=== PATIENT | female | born 2000 | race Caucasian/White ===

== ENCOUNTER 2021-01-21 14:01 | Outpatient (REF) | payer OTHER, SELFPAY | END 2021-01-21 14:02 | disposition home or self-care (01) | LOC: HO.LNP 14:01 | PROVIDERS: Visit Provider Physician Assistant Medical | DX: R11.10 Vomiting, unspecified (principal); Z20.822 Contact with and (suspected) exposure to COVID-19 | CPT/HCPCS: U0003; U0005 ==

== ENCOUNTER 2022-01-28 10:52 | Emergency (ER) | payer OTHER, SELFPAY ==
[2022-01-28 11:22] VITALS: BP 144/65; PULSE 124; RESP 20; TEMP 38.3; O2SAT 95; BMI 39.0
--- NOTE | 2022-01-28 11:23 | ED.URI ---
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 No additional vomiting. NO diarrhea, abdominal pain, neck pain/stiffness, rash, diff breathing. <ELINA Levy Last Filed: 01/28/22 13:03> Related Data Home Medications: Previous Rx's Medication Instructions Recorded ondansetron 4 mg disintegrating 4 mg PO Q6H PRN nausea and 01/28/22 tablet vomiting #10 tabs <Zulma Rangel CNP - Last Filed: 01/28/22 11:29> Allergies/Adverse Reactions: Allergies Allergy/AdvReac Type Severity Reaction Status Date / Time No Known Allergies Allergy Verified 01/21/21 12:39 <Zulma Rangel CNP - Last Filed: 01/28/22 11:29> Review of Systems Review of Systems: Yes all other systems are reviewed and are negative <ELINA Levy Last Filed: 01/28/22 13:03> Constitutional: Constitutional: Reports no additional constitutional complaints, Reports body ache(s), Reports chills, Reports fever(s), Reports headache(s) and Denies weakness <ELINA Levy Last Filed: 01/28/22 13:03> Eyes: Eyes: Reports no additional eye complaints and Denies change in vision <Melly Trejo NP - Last Filed: 01/28/22 13:03> ENT: Reports system reviewed and no additional complaints, except as documented, Denies dizziness, Reports headache(s), Reports nasal congestion, Denies nasal discharge and Denies neck pain <Melly Trejo BACTERIOLOGIST MEDICAL - Last Filed: 01/28/22 13:03> Cardiovascular: Cardiovascular: Reports no additional cardiovascular complaints, Denies chest pain, Denies leg edema and Denies dyspnea <Melly Trejo BACTERIOLOGIST MEDICAL - Last Filed: 01/28/22 13:03> Respiratory: Respiratory: Reports no additional respiratory complaints, Reports cough and Denies dyspnea <Melly Trejo NP - Last Filed: 01/28/22 13:03> Gastrointestinal: Gastrointestinal: Reports no additional gastrointestinal complaints, Denies abdominal pain, Denies diarrhea, Reports nausea and Reports vomiting <Melly Trejo NP - Last Filed: 01/28/22 13:03> Genitourinary: Genitourinary: Reports no additional female genitourinary complaints and Denies urinary incontinence <Melly Trejo BACTERIOLOGIST MEDICAL - Last Filed: 01/28/22 13:03> Musculoskeletal: Musculoskeletal: Reports no additional musculoskeletal complaints, Denies back pain, Denies arthralgias, Denies joint swelling, Denies neck pain, Denies numbness and Denies tingling <Melly Trejo NP - Last Filed: 01/28/22 13:03> Integumentary/Breasts: Skin/Breast: Reports system reviewed and no additional complaints, except as docu and Denies rash <Melly Trejo NP - Last Filed: 01/28/22 13:03> Neurologic: Reports system reviewed and no additional complaints, except as documented, Denies Abnormal speech present, Denies dizziness, Reports headache(s), Denies numbness, Denies tingling and Denies weakness <Melly Trejo NP - Last Filed: 01/28/22 13:03> PMFSH Past Medical History Attestation statement: The following information was validated with the patient. <Melly Trejo NP - Last Filed: 01/28/22 13:03> Source: old records reviewed and nursing notes reviewed <Melly Trejo NP - Last Filed: 01/28/22 13:03> Social History Social History: Social History Patient Tobacco Use Status: Never used Tobacco Advance Directives: No Advance Directives Information Provided: Yes <Zulma Rangel CNP - Last Filed: 01/28/22 11:29> Physical Exam Vital Signs: Vital Signs: Last Vital Signs Temp 98.4 F 01/28/22 12:55 Pulse 119 H 01/28/22 12:55 Resp 16 01/28/22 12:55 BP 112/68 01/28/22 12:55 Pulse Ox 95 01/28/22 12:55 O2 Del Method 01/28/22 12:55 BMI result Body Mass Index 39.0 <Zulma Rangel CNP - Last Filed: 01/28/22 11:29> Vital Signs: Last Vital Signs Temp 98.4 F 01/28/22 12:55 Pulse 119 H 01/28/22 12:55 Resp 16 01/28/22 12:55 BP 112/68 01/28/22 12:55 Pulse Ox 95 01/28/22 12:55 O2 Del Method 01/28/22 12:55 BMI result Body Mass Index 39.0 <Melly Trejo NP - Last Filed: 01/28/22 13:03> Const: General: cooperative, healthy appearing, comfortable and no acute distress <Melly Trejo NP - Last Filed: 01/28/22 13:03> Orientation/consciousness: patient oriented x3 <Melly Trejo NP - Last Filed: 01/28/22 13:03> Limitations: no limitations <Melly Trejo NP - Last Filed: 01/28/22 13:03> HEENT: Head: Yes normal to inspection <Melly Trejo NP - Last Filed: 01/28/22 13:03> Ears: hearing grossly normal bilaterally and TM's normal bilaterally <Melly Trejo NP - Last Filed: 01/28/22 13:03> General nose exam: Normal external nose present <Melly Trejo NP - Last Filed: 01/28/22 13:03> Face and sinus: Yes normal facial exam <Melly Trejo NP - Last Filed: 01/28/22 13:03> Mouth: Normal oral and palatal mucosa present <Melly Trejo NP - Last Filed: 01/28/22 13:03> Throat: Yes posterior oropharynx normal, Yes tonsils normal and Yes uvula midline <Melly Trejo BACTERIOLOGIST MEDICAL - Last Filed: 01/28/22 13:03> Eyes: General: appearance normal, both eyes and all related structures <Melly Trejo NP - Last Filed: 01/28/22 13:03> Pupils: Equal, round and reactive pupils present <Melly Trejo NP - Last Filed: 01/28/22 13:03> Neck: Neck: Yes normal visual inspection <Melly Trejo NP - Last Filed: 01/28/22 13:03> Chest: Chest palpation & inspection: normal inspection of the chest <Melly Trejo NP - Last Filed: 01/28/22 13:03> Resp: Other: Mild exp wheezing <Melly Trejo NP - Last Filed: 01/28/22 13:03> Effort & Inspection: normal respiratory effort <Melly Trejo NP - Last Filed: 01/28/22 13:03> Cardio: Rate: regular rate <Melly Trejo NP - Last Filed: 01/28/22 13:03> Rhythm: regular rhythm <Melly Trejo NP - Last Filed: 01/28/22 13:03> Peripheral pulses: Peripheral pulses 2+ throughout <Melly Trejo NP - Last Filed: 01/28/22 13:03> GI: Inspection: Yes normal to inspection <Melly Trejo NP - Last Filed: 01/28/22 13:03> Palpation (GI): Soft to palpation and nontender <Melly Trejo NP - Last Filed: 01/28/22 13:03> Auscultation: normal bowel sounds <Melly Trejo NP - Last Filed: 01/28/22 13:03> Back/Spine/Pelvis: Thoracic/Lumbar Spine: thoracic and lumbar spine normal to inspection <Melly Trejo NP - Last Filed: 01/28/22 13:03> Skin: General skin exam: no rashes or lesions noted <Melly Trejo NP - Last Filed: 01/28/22 13:03> Neuro: General: patient oriented x3, no focal motor deficits and normal sensation to monofilament <Melly Trejo NP - Last Filed: 01/28/22 13:03> Cranial nerves: Yes Equal, round and reactive pupils present <Melly Trejo NP - Last Filed: 01/28/22 13:03> Cognition (Neuro): normal cognition <Melly Trejo NP - Last Filed: 01/28/22 13:03> Speech: No Abnormal speech present <Melly Trejo NP - Last Filed: 01/28/22 13:03> Gait exam (Neuro): Normal gait present <Melly Trejo NP - Last Filed: 01/28/22 13:03> Motor exam (neuro): 5/5 motor strength present throughout <Melly Trejo NP - Last Filed: 01/28/22 13:03> Extrem: General: Yes normal to inspection, Yes no pedal edema and Yes no calf tenderness <Melly Trejo NP - Last Filed: 01/28/22 13:03> Course Course Course Narrative: RME: Patient is a 21-year-old female presents emergency department for evaluation of congestion, headache, nausea, productive cough, difficulty breathing. Denies known sick contacts, denies fevers, shortness of breath, chest pain. Has been vaccinated for COVID-19. PE: Febrile, tachycardic lung sounds diminished bilaterally abdominal exam benign Plan: COVID-19 testing, influenza testing, acetaminophen for fever <Zulma Rangel CNP - Last Filed: 01/28/22 11:29> Reevaluation(s) Reevaluation #1: 1300-Flu A+. temp improved with tylenol. Patient feels overall much better. Still mildy tachycardic. Likely mild dehydration from fever loss. Patient opts to go home and orally rehydrate vs IVF. Declined tamiflu. Reviewed worrisome signs/symptoms with patient and when to seek additional care. Comfortable with discharge home. <Melly Trejo NP - Last Filed: 01/28/22 13:03> Medications Administered Discontinued Medications Generic Name Dose Route Start Last Admin Trade Name Freq PRN Reason Stop Dose Admin Acetaminophen 650 mg 01/28/22 11:27 01/28/22 11:55 Acetaminophen 325 Mg Tablet PO 01/28/22 11:28 650 mg ONCE ONE Administration Albuterol Sulfate 2 puff 01/28/22 12:16 01/28/22 12:28 Albuterol Sulfate 90 Mcg 8 Gm Inhaler INHALE 01/28/22 12:17 2 puff ONCE ONE Administration <Zulma Rangel CNP - Last Filed: 01/28/22 11:29> Medications Administered Discontinued Medications Generic Name Dose Route Start Last Admin Trade Name Freq PRN Reason Stop Dose Admin Acetaminophen 650 mg 01/28/22 11:27 01/28/22 11:55 Acetaminophen 325 Mg Tablet PO 01/28/22 11:28 650 mg ONCE ONE Administration Albuterol Sulfate 2 puff 01/28/22 12:16 01/28/22 12:28 Albuterol Sulfate 90 Mcg 8 Gm Inhaler INHALE 01/28/22 12:17 2 puff ONCE ONE Administration <Melly Trejo NP - Last Filed: 01/28/22 13:03> MDM - URI/Sore Throat MDM Narrative Medical decision making narrative: 21 yo female who 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 Abdomen soft/nontender. No meningeal signs/symptoms VSS LS with mild exp wheezing. no hypoxia/tachypnea on arrival fever with tachycardia Will send testing for flu, covid, rsv Give SL zofran, APAP <Melly Trejo NP - Last Filed: 01/28/22 13:03> Medical Records Attestation: I reviewed the patient's medical records. <Melyl Trejo NP - Last Filed: 01/28/22 13:03> Lab Data Attestation: I reviewed the patient's lab results. <Melly Trejo NP - Last Filed: 01/28/22 13:03> Labs: Lab Results 01/28/22 01/28/22 Range/Units 11:30 11:30 COVID-19 ([facility]US) Negative (Negative) COVID-19 Clin Com See Note Influenza Type A (MARGARITA) Positive A (Negative) Influenza Type B (MARGARTIA) Negative (Negative) Influenza A & B Note See Note <Zulma Rangel CNP - Last Filed: 01/28/22 11:29> Lab Results 01/28/22 01/28/22 Range/Units 11:30 11:30 COVID-19 (JEUSS) Negative (Negative) COVID-19 Clin Com See Note Influenza Type A (MARGARITA) Positive A (Negative) Influenza Type B (MARGARITA) Negative (Negative) Influenza A & B Note See Note <Melly Trejo NP - Last Filed: 01/28/22 13:03> Discharge Plan Discharge Clinical Impression: Influenza <Zulma Rangel CNP - Last Filed: 01/28/22 11:29> Patient Disposition: Home, Self-Care <Zulma Rangel CNP - Last Filed: 01/28/22 11:29> Instructions: Influenza (ED) <Zulma Rangel CNP - Last Filed: 01/28/22 11:29> Additional Instructions: Testing for covid and rsv are negative fluids, fluids, fluids at home <Zulma Rangel CNP - Last Filed: 01/28/22 11:29> Prescriptions: New ondansetron 4 mg tablet,disintegrating 4 mg PO Q6H PRN (Reason: nausea and vomiting) Qty: 10 0RF <Zulma Rangel CNP - Last Filed: 01/28/22 11:29> Referrals: Physician,None [Primary Care Provider] - <Zulma Rangel CNP - Last Filed: 01/28/22 11:29> Stand Alone Forms: Work/School Release <Zulma Rangel CNP - Last Filed: 01/28/22 11:29>
[2022-01-28 11:54] LABS: IDNOW Serial# 16C4AD1C; IDNOW Serial# BCCEAD1C; Influenza A Positive (Negative); Influenza B2 Negative (Negative)
[2022-01-28 11:55] LABS: COVID-19 Test Negative (Negative)
[2022-01-28] MEDS: Acetaminophen 325 MG TABLET 650 MG PO (11:55)
--- NOTE | 2022-01-28 12:17 | ED.URI ---
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 No additional vomiting. NO diarrhea, abdominal pain, neck pain/stiffness, rash, diff breathing. Related Data Home Medications Medication Instructions Recorded Confirmed No Known Home Meds 01/21/21 01/21/21 Allergies Allergy/AdvReac Type Severity Reaction Status Date / Time No Known Allergies Allergy Verified 01/21/21 12:39 Review of Systems Review of Systems: Yes all other systems are reviewed and are negative Constitutional: Constitutional: Reports no additional constitutional complaints, Reports body ache(s), Reports chills, Reports fever(s), Reports headache(s) and Denies weakness Eyes: Eyes: Reports no additional eye complaints and Denies change in vision ENT: Reports system reviewed and no additional complaints, except as documented, Denies dizziness, Reports headache(s), Reports nasal congestion, Denies nasal discharge and Denies neck pain Cardiovascular: Cardiovascular: Reports no additional cardiovascular complaints, Denies chest pain, Denies leg edema and Denies dyspnea Respiratory: Respiratory: Reports no additional respiratory complaints, Reports cough and Denies dyspnea Gastrointestinal: Gastrointestinal: Reports no additional gastrointestinal complaints, Denies abdominal pain, Denies diarrhea, Denies nausea and Denies vomiting Genitourinary: Genitourinary: Reports no additional female genitourinary complaints and Denies urinary incontinence Musculoskeletal: Musculoskeletal: Reports no additional musculoskeletal complaints, Denies back pain, Denies arthralgias, Denies joint swelling, Denies neck pain, Denies numbness and Denies tingling Integumentary/Breasts: Skin/Breast: Reports system reviewed and no additional complaints, except as docu and Denies rash Neurologic: Reports system reviewed and no additional complaints, except as documented, Denies Abnormal speech present, Denies dizziness, Reports headache(s), Denies numbness, Denies tingling and Denies weakness PMF Past Medical History Attestation statement: The following information was validated with the patient. Source: old records reviewed and nursing notes reviewed Social History Social History Patient Tobacco Use Status: Never used Tobacco Advance Directives: No Advance Directives Information Provided: Yes Physical Exam Vital Signs: Vital Signs: Last Vital Signs Temp 100.9 F H 01/28/22 11:22 Pulse 124 H 01/28/22 11:22 Resp 20 01/28/22 11:22 BP 144/65 H 01/28/22 11:22 Pulse Ox 95 01/28/22 11:22 O2 Del Method 01/28/22 11:22 BMI result Body Mass Index 39.0 Const: General: cooperative, healthy appearing, comfortable and no acute distress Orientation/consciousness: patient oriented x3 Limitations: no limitations HEENT: Head: Yes normal to inspection Ears: hearing grossly normal bilaterally General nose exam: Normal external nose present Face and sinus: Yes normal facial exam Mouth: Normal oral and palatal mucosa present Throat: Yes posterior oropharynx normal Eyes: General: appearance normal, both eyes and all related structures Pupils: Equal, round and reactive pupils present Neck: Neck: Yes normal visual inspection Chest: Chest palpation & inspection: normal inspection of the chest Resp: Effort & Inspection: normal respiratory effort Auscultation: clear to auscultation bilaterally Cardio: Rate: regular rate Rhythm: regular rhythm Peripheral pulses: Peripheral pulses 2+ throughout GI: Inspection: Yes normal to inspection Palpation (GI): Soft to palpation and nontender Auscultation: normal bowel sounds Back/Spine/Pelvis: Thoracic/Lumbar Spine: thoracic and lumbar spine normal to inspection Skin: General skin exam: no rashes or lesions noted Neuro: General: patient oriented x3, no focal motor deficits and normal sensation to monofilament Cranial nerves: Yes Equal, round and reactive pupils present Cognition (Neuro): normal cognition Speech: No Abnormal speech present Gait exam (Neuro): Normal gait present Motor exam (neuro): 5/5 motor strength present throughout Extrem: General: Yes normal to inspection Medications Administered Discontinued Medications Generic Name Dose Route Start Last Admin Trade Name Freq PRN Reason Stop Dose Admin Acetaminophen 650 mg 01/28/22 11:27 01/28/22 11:55 Acetaminophen 325 Mg Tablet PO 01/28/22 11:28 650 mg ONCE ONE Administration MDM - URI/Sore Throat Lab Data Labs: Lab Results 01/28/22 01/28/22 Range/Units 11:30 11:30 COVID-19 ([facility]US) Negative (Negative) COVID-19 Clin Com See Note Influenza Type A (MARGARITA) Positive A (Negative) Influenza Type B (MARGARITA) Negative (Negative) Influenza A & B Note See Note Discharge Plan Discharge Prescriptions: No Action No Known Home Meds
[2022-01-28] MEDS: Albuterol Sulfate 90 MCG 8 GM INHALER 2 PUFF INHALE (12:28)
[2022-01-28 12:29] VITALS: PULSE 120; RESP 16; O2SAT 95
[2022-01-28 12:55] VITALS: BP 112/68; PULSE 119; RESP 16; TEMP 36.9; O2SAT 95
== END 2022-01-28 13:15 | disposition home or self-care (01) ==
PROVIDERS: Nurse Practitioner Family; Emergency Provider Emergency Medicine Emergency Medical Services
DX: J11.1 Influenza due to unidentified influenza virus with other respiratory manifestations (principal); R50.9 Fever, unspecified; Z20.822 Contact with and (suspected) exposure to COVID-19
CPT/HCPCS: 87502; 87635; 94640; 99284

== ENCOUNTER 2023-01-22 14:55 | Emergency (ER) | payer OTHER, SELFPAY ==
--- NOTE | ~2023-01-22 | XR_ITS ---
EXAMINATION: XR CHEST CLINICAL INFORMATION: Cough COMPARISON: None available. TECHNIQUE: 2 views of the chest were obtained. FINDINGS: No significant abnormality is noted involving the heart, lungs, mediastinum, bony thorax or soft tissues. XR/XR chest 2V IMPRESSION: Unremarkable examination.
[2023-01-22 15:14] VITALS: BP 171/81; PULSE 91; RESP 18; TEMP 36.9; O2SAT 100; BMI 40.3
[2023-01-22 16:33] LABS: IDNOW Serial# 08D9AD1C; Strep A Nucleic Acid Negative (Negative)
[2023-01-22 17:08] LABS: Influenza A PCR NEGATIVE (Negative); Influenza B PCR NEGATIVE (Negative); Resp Syncy Virus RNA Qual PCR NEGATIVE (Negative); SARS COV2 PCR INHOUSE NEGATIVE (Negative)
--- NOTE | 2023-01-22 19:20 | ED.GENADULT ---
HPI - General Adult General Chief complaint: Upper Respiratory Symptoms Stated complaint: Congested/Fever? Time Seen by Provider: 01/22/23 19:08 Source: patient History of Present Illness HPI narrative: 22 yold female presents to the ED for coughing green phelghm, hoarse voice, nausea, and bilateral red eyes since yesterday. Patient denies any abdominal pain, dysuira, hemautira, flank pain, chest pain, shortness of breath, rash, or weakness. Patient denies any eye trauma, change in vision, or or pain. Related Data Previous Rx's Medication Instructions Recorded ondansetron 4 mg disintegrating 4 mg PO Q6H PRN nausea and 01/28/22 tablet vomiting #10 tabs cephalexin 500 mg capsule 500 mg PO QID 7 days #28 caps 01/22/23 erythromycin 5 mg/gram (0.5 %) eye 0.5 inch ophthalmic (eye) QID 7 01/22/23 ointment days #3.5 grams Allergies Allergy/AdvReac Type Severity Reaction Status Date / Time No Known Allergies Allergy Verified 01/22/23 15:14 Review of Systems Review of Systems: cough Yes all other systems are reviewed and are negative [facility] Social History Social History Patient Tobacco Use Status: Never used Tobacco Advance Directives: No Advance Directives Information Provided: No Physical Exam ED Vital Signs: Vital Signs - 24 hr 01/22/23 15:14 Temperature 98.4 F Pulse Rate 91 Respiratory Rate 18 Blood Pressure 171/81 H Pulse Oximetry 100 Oxygen Delivery Method Room Air BMI result Body Mass Index 40.3 Const General: cooperative, healthy appearing, comfortable, no acute distress, well developed, alert, awake and Physically active Orientation/consciousness: oriented to person, oriented to place, oriented to time and patient oriented x3 HENMT Head: Yes normal to inspection, Yes No palpable skull fracture present, Yes normocephalic and Yes atraumatic Ears: hearing grossly normal bilaterally, external ears normal, TM's normal bilaterally, TM normal on the right, TM normal on the left, EAC's normal, mastoids normal and no periauricular adenopathy Throat: Yes posterior oropharynx normal, Yes tonsils normal and Yes uvula midline Eyes Other: positive for bilateral red eyes conjucitiva. Tetraciane placed in eyes. flouride dye placed in both eyes. negative abrasions, foreign body, corneal ulcers, or signs of globe rupture. eyelids normal. VIsual acuities normal in both eyes. General: appearance normal, both eyes and all related structures Visual Painter: normal visual painter by confrontation Alignment and Position: alignment normal and alignment abnormal Periorbital: periorbital findings normal Eyelids: Yes eyelids normal Conjunctivae: other (redness) Corneas: corneas normal Pupils: Equal, round and reactive pupils present EOM: EOMs intact bilaterally Direct Ophthalmoscopy: normal light reflex, no photophobia and no papilledema Neck Neck: Yes normal visual inspection, Yes full ROM, Yes no lymphadenopathy, Yes no meningeal signs, Yes trachea midline, Yes supple, No anterior neck swelling and No tender Chest Chest palpation & inspection: normal inspection of the chest and normal palpation of entire chest wall Resp Effort & Inspection: normal respiratory effort and able to speak in complete sentences Auscultation: clear to auscultation bilaterally Cardio Jugular venous distension: no JVD Heart sounds: S1 normal heart sound present and S2 normal heart sound present GI Inspection: Yes normal to inspection and No abdominal wall ecchymosis Palpation (GI): Soft to palpation, not firm, nontender, no guarding and not rigid General: Yes no CVA tenderness Back/Spine/Pelvis Back: no CVA tenderness and No back tenderness Skin General skin exam: no rashes or lesions noted, elasticity normal and turgor normal Neuro General: oriented to person, oriented to place, oriented to time, patient oriented x3, gait normal, tone normal, moves all extremities, Normal light touch and pain sensation, no meningeal signs and no focal motor deficits Cranial nerves: Yes Equal, round and reactive pupils present Extrem General: Yes normal to inspection, Yes full ROM and Yes capillary refill normal Psych Appearance: grossly normal, well kempt and not disheveled Course Course Course Narrative: 22 yold female presents to the ED For bilateral red watery eyes, coughing with green phelghm, and hoarse voice. negative for corneal abrasoins Medications Administered Discontinued Medications Generic Name Dose Route Start Last Admin Trade Name Freq PRN Reason Stop Dose Admin Fluorescein Sodium 1 strip 01/22/23 19:13 01/22/23 19:23 Fluorescein Sodium Strip EYE-LEFT 01/22/23 19:14 1 strip ONCE ONE Administration Fluorescein Sodium 1 strip 01/22/23 19:13 01/22/23 19:23 Fluorescein Sodium Strip EYE-RIGHT 01/22/23 19:14 1 strip ONCE ONE Administration Tetracaine HCl 3 drop 01/22/23 19:13 01/22/23 19:24 Tetracaine Hcl/Pf 0.5% Oph Soila 4 Ml Drops EYE-BOTH 01/22/23 19:14 3 drop ONCE ONE Administration Medical Decision Making Medical Decision Making [facility] Narrative: 22 yold female with coughing, bilateral red eyes, , hoarse voice, and nu[place] since last night. Patient is well-appeared. swabs, and chest xray negative. UA shows mild possible UTI. Patient safe for discharge. Differential Diagnosis Differential Diagnoses: The differential diagnosis associated with the presentation includes (ear infection, URI, pneumonia, UTI, strep, covid, rsv, influenza) Admission/Observation Consideration of admission/observation: Escalation of care including admission/observation considered Lab Data [facility] Lab Attestation statement: I reviewed the patient's lab results. Labs: Lab Results 01/22/23 01/22/23 Range/Units 16:06 19:47 Urine Color Yellow Urine Appearance Clear Urine pH 5.5 (5.0-9.0) Ur Specific [place] >= 1.030 H (1.005-1.025) Urine Protein Negative (Neg-Trace) mg/dL Urine Glucose (UA) Negative (Negative) mg/dL Urine Ketones 80 (Negative) mg/dL Urine Blood Negative (Negative) Urine Nitrite Negative (Negative) Ur Leukocyte Esterase Small (1+) H (Negative) Urine RBC 3-5 H (0-2) /HPF Urine WBC 0-5 (0-5) /HPF Ur Squamous Epith Cells 0-2 (0-2) /HPF Urine Bacteria 1+ (None Seen) Hyaline Casts 0-2 (0-2) /LPF Urine Test NEGATIVE (NEGATIVE) Influenza Type A (PCR) NEGATIVE (Negative) Influenza Type B (PCR) NEGATIVE (Negative) RSV RNA Qual (PCR) NEGATIVE (Negative) SARS-CoV-2 RNA (RT-PCR) NEGATIVE (Negative) S. pyogenes GrpA MARGARITA Negative (Negative) Independent Interpretation I performed an independent interpretation of an: Plain X-Ray Radiology Impression Discussion of test interpretation with radiology: I have reviewed the radiologist's reading. Independent Historian Clinical information obtained from an independent historian. History obtained from or confirmed by: Other (ointment, oral antioibitcs.) External Record Review External record reviewed: Other (Prior Visits) Prescription Management I considered prescription management with: Other Discharge Plan Discharge Clinical Impression: URI (upper respiratory infection), Acute bacterial conjunctivitis, UTI (urinary tract infection) Patient Disposition: Home, Self-Care Instructions: Urinary Tract Infection in Women (ED), Upper Respiratory Infection (ED), Conjunctivitis (ED) Additional Instructions: Return to the ED immeidatley for any chest pain, shortness of breath, bilateral eye worsening redness, loss of vision, abdominal pain, flank pain, coughing up blood, bloody urine, increased urinary frequency, worsening eye discharge, or any other concerning symptoms. Prescriptions: New erythromycin 5 mg/gram (0.5 %) ointment 0.5 inch ophthalmic (eye) QID 7 Days Qty: 3.5 0RF cephalexin 500 mg capsule 500 mg PO QID 7 Days Qty: 28 0RF No Action ondansetron 4 mg tablet,disintegrating 4 mg PO Q6H PRN (Reason: nausea and vomiting) Qty: 10 0RF Stand Alone Forms: Work/School Release Interventions: ED Discharge Assessment Last Done: 01/22/23 21:05 Discharge Date/Time: 01/22/23 21:06 Print Language: Polish
[2023-01-22] MEDS: Fluorescein Sodium STRIP 1 STRIP EYE-RIGHT (19:23)
[2023-01-22] MEDS: Fluorescein Sodium STRIP 1 STRIP EYE-LEFT (19:23)
[2023-01-22] MEDS: Tetracaine HCl/PF 0.5% Oph Sol 4 ML DROPS 3 DROP EYE-BOTH (19:24)
[2023-01-22 19:54] LABS: Appearance Urine Clear; Color Urine Yellow; Glucose Urine UA Negative (Negative); Leukocyte Esterase Urine Small (1+) (Negative); Nitrite Urine Negative (Negative); PH 5.5 (5.0-9.0); Specific Gravity - Urine >= 1.030 (1.005-1.025); UMIC TRIGGER UACC YES; Urine Blood Negative (Negative); Urine Ketones 80 mg/dL (Negative); Urine Protein Negative (Neg-Trace)
[2023-01-22 19:56] LABS: UPreg QC Valid YES; Urine Pregnancy NEGATIVE (NEGATIVE)
[2023-01-22 20:06] LABS: Bacteria Urine 1+ (None Seen); Hyaline Casts Urine 0-2 /LPF (0-2); Squamous Epithelial Cell Urine 0-2 /HPF (0-2); UACC Culture Trigger YES; WBC Urine 0-5 /HPF (0-5)
== END 2023-01-22 21:06 | disposition home or self-care (01) ==
PROVIDERS: Physician Assistant; Emergency Provider Student in an Organized Health Care Education/Training Program
DX: J06.9 Acute upper respiratory infection, unspecified (principal); H10.33 Unspecified acute conjunctivitis, bilateral; N39.0 Urinary tract infection, site not specified; R09.81 Nasal congestion; R50.9 Fever, unspecified; R05.9 Cough, unspecified; Z20.822 Contact with and (suspected) exposure to COVID-19; Z20.828 Contact with and (suspected) exposure to other viral communicable diseases; Z79.899 Other long term (current) drug therapy
CPT/HCPCS: 0241U; 71046; 81001; 81025; 87086; 87651; 99283